=== PATIENT | female | born 1960 | race Caucasian/White ===

== ENCOUNTER 2016-10-07 08:14 | Day surgery (SDC) | payer OTHER ==
[~2016-10-07] VITALS: Ht 157.5 cm; Wt 64.4 kg
[~2016-10-07 08:14] MED LIST: 0.9% Sodium Chloride 1,000 ML IV SCH; ESOM40CA41 PO; Sodium Chloride LOK Flush 10 mL Syringe IV PRN; fentaNYL-PF 50 mCg/mL 2 mL Inj IVPUSH PRN
[2016-10-07 08:39] VITALS: BP 135/87; PULSE 72; O2SAT 97
[2016-10-07 09:35] VITALS: BP 103/68; PULSE 69; RESP 16; O2SAT 92
[2016-10-07 09:44] VITALS: BP 96/64; PULSE 66; RESP 12; O2SAT 95
[2016-10-07 09:54] VITALS: BP 115/69; PULSE 62; RESP 12; O2SAT 92
--- NOTE | 2016-10-07 14:05 | ENDO ---
[address] [address] ENDOSCOPY PROCEDURE PATIENT: DARIN WATSON : 1960 MR#: [id number] ADMIT: 10/07/2016 JOB ID: [id number] DATE OF SERVICE: 10/07/2016 TYPE OF OPERATION: Esophagogastroduodenoscopy, biopsy, and colonoscopy with biopsy. PREOPERATIVE DIAGNOSIS(ES): Dysphagia, gastroesophageal reflux disease, and colorectal cancer screening. POSTOPERATIVE DIAGNOSIS(ES): 1. Mild nonerosive gastritis. 2. A 3 mm ascending colon polyp, removed by cold biopsy forceps. 3. A soft, mobile polyp. Appears to be a lipoma in the ascending colon, status post biopsy. ANESTHESIA: Fentanyl 100 mcg, Versed 7 mg IV administered. COMPLICATIONS: None. BLOOD LOSS: Minimal. DESCRIPTION OF PROCEDURE: After risks and benefits explained to the patient, informed consent was obtained. After anesthesia administered, an upper endoscope was inserted in the mouth intubating to the esophagus, stomach, second portion of duodenum. Mucosa carefully examined. After procedure was done, the scope withdrawn, procedure terminated. A colonoscope was then inserted from the rectum to the cecum. Mucosa carefully examined. Prep of the patient was excellent. After procedure was done, scope withdrawn, procedure terminated. FINDINGS: Upon inspection of the esophagus, esophagus was normal without masses, ulcers, or lesions. Z-line located at 40 cm from incisors. Upon entering the stomach, there was mild nonerosive gastritis that was seen. Retroflexion was normal. Duodenal bulb, first and second portion were normal. Biopsies taken of the antrum, body, and distal esophagus. Upon inspection of the anus, no masses, hemorrhoids, ulcers, or fissures that were seen throughout the entire examination. There was a 3 mm ascending colon polyp, removed by cold biopsy forceps. There was also a soft, mobile polyp that appears to be a lipoma in the ascending colon, which was biopsied. Retroflexion was normal. IMPRESSION: 1. Mild nonerosive gastritis. 2. A 3 mm ascending colon polyp, removed by cold biopsy forceps. 3. Supple mobile polyp. Appeared to be a lipoma in the ascending colon. RECOMMENDATION: Await pathology results. If tubular adenoma, then next colonoscopy in five years and follow up in GI clinic as needed.
--- NOTE | 2016-10-11 16:35 | PATH ---
SURGICAL PATHOLOGY Attending Physician:Sanket Tobias MD CASE STATUS: Signed Out PATIENT NAME: DARIN WATSON PID: [id number] : 1960 DATE COLLECTED:10/07/2016 21:06 SPECIMEN: 1: Esophagus, Biopsy 2: Esophagus, Biopsy 3: Stomach, Antrum, Biopsy 4: Gastric, Biopsy 5: Colon, Polyp 6: Colon, Biopsy CLINICAL HISTORY: 1). MID ESOPHAGUS 2). DISTAL ESOPHAGUS 3). ANTRUM 4). GASTRIC BODY 5). ASCENDING COLON POLYP 6). ASCENDING LIPOMA FINAL DIAGNOSIS: 1.MID ESOPHAGUS, BIOPSY SQUAMOUS EPITHELIUM WITH INCREASED INTRAEPITHELIAL EOSINOPHILS (UP TO 10 PER HIGH POWER FIELD). SEE COMMENT. Negative for dysplasia and malignancy. 2.DISTAL ESOPHAGUS, BIOPSY: SQUAMOUS EPITHELIUM WITH INCREASED INTRAEPITHELIAL EOSINOPHILS (UP TO 10 PER HIGH POWER FIELD). SEE COMMENT. Negative for dysplasia and malignancy. 3.GASTRIC ANTRUM, BIOPSY: GASTRIC ANTRAL MUCOSA WITH CHRONIC GASTRITIS. Negative for Helicobacter organisms by immunohistochemistry. Negative for intestinal metaplasia. Negative for dysplasia and malignancy. 4.GASTRIC BODY, BIOPSY: GASTRIC BODY MUCOSA WITH CHRONIC GASTRITIS. Negative for intestinal metaplasia. Negative for dysplasia and malignancy. 5.ASCENDING COLON POLYP, BIOPSY: HYPERPLASTIC POLYP. 6.ASCENDING COLON LESION, BIOPSY: SERRATED POLYP, FAVOR SESSILE SERRATED ADENOMA; SEE COMMENT. ICD10 R13.10 D12.6 NOTE: 1 & 2. Despite not meeting the histologic criteria of 15 eosinophils per 40X high power field in the mid esophageal biopsy, the histopathologic appearance may support a clinical impression of eosinophilic esophagitis, in the proper clinical setting. The differential diagnosis includes drug reaction, gastroesophageal reflux, and food allergies. 6. We note the endoscopic impression of a submucosal lipoma; however, there is an unequivocal serrated polyp in this biopsy. There are focal features suggestive of a sessile serrated adenoma. Correlation with the endoscopic findings to ensure complete removal of this lesion is recommended. The finding of a serrated polyp in the ascending colon (Part 6) was discussed with Dr. Tobias by Dr. Yunior Patterson on 10/10/16 at 20:25 a.m. GROSS DESCRIPTION: The specimen is received in six formalin filled containers labeled with the patient's name. 1). Received in formalin and labeled "mid esophagus" and consists of 2 portions of tissue which aggregate to 0.3 x 0.3 x 0.2 CM. The specimen is entirely submitted in cassettes 1A. 2). The specimen is labeled "distal esophagus" and consists of a 0.3 x 0.2 x 0.2 CM portion of tissue which is entirely submitted in cassette 2A. 3). The specimen is labeled "antrum" and consists of 0.3 x 0.3 x 0.2 CM. The specimen is entirely submitted in cassette 3A. 4). The specimen is labeled "gastric body" and consists of a 0.4 x 0.2 x 0.2 CM portion of tissue which is entirely submitted in cassette 4A. 5). The specimen is labeled "ascending colon polyp" and consists of 2 portions of tissue which aggregate to 0.5 x 0.3 x 0.2 CM. The specimen is entirely submitted in cassette 5A. 6). The specimen is labeled "ascending lipoma" and consists of 2 portions of tissue which aggregate to 0.3 x 0.2 x 0.2 CM. The specimen is entirely submitted in cassette 6A. 10/07/2016DC MICRO DESCRIPTION: 3. An immunohistochemical stain was performed to evaluate for Helicobacter organisms and is negative. A control stain showed appropriate reactivity. This test was developed and its performance characteristics determined by [facility]. It has not been cleared or approved by the [place]. Food and Drug Administration. The FDA has determined that such clearance or approval is not necessary. This test is used for clinical purposes. It should not be regarded as investigational or for research. ICD-9 CODES: CPT CODES: 1: 27247 2: 58653 3: 70685, 13410 4: 78857 5: 43049 6: 76118 Electronically Signed Out Yunior Patterson MD, Ph.D. [facility] Pathology [facility] [address], [place] [address] Technical component performed at [facility], [address], [place], [address]
== END 2016-10-07 23:59 | disposition home or self-care (01) ==
LOC: END 08:14
PROVIDERS: ATTEND Internal Medicine Gastroenterology
DX: Z12.11 Encounter for screening for malignant neoplasm of colon (principal); D12.2 Benign neoplasm of ascending colon; K63.5 Polyp of colon; K29.50 Unspecified chronic gastritis without bleeding; K21.9 Gastro-esophageal reflux disease without esophagitis; R13.10 Dysphagia, unspecified